=== PATIENT | female | born 1980 ===

== ENCOUNTER 2016-12-19 08:33 | Outpatient (CLI) | payer BC ==
--- NOTE | 2016-12-19 13:35 | Mammography Report ---
BILATERAL DIGITAL SCREENING MAMMOGRAM with CAD: 12/19/16 08:33:00 CLINICAL: Baseline screening. FINDINGS: The breasts are almost entirely fatty. No mass, architectural distortion or suspicious calcifications. IMPRESSION: No mammographic evidence of malignancy. BI-RADS CATEGORY: 1 - - Negative RECOMMENDATION: Routine mammographic screening based on ACS guidelines. COMMENT: Patient follow-up letters are generated by our [employer] application.
== END 2016-12-19 08:34 | disposition home or self-care (01) ==
LOC: SPVWC 08:33
PROVIDERS: ATTEND Family Medicine
DX: Z12.31 Encounter for screening mammogram for malignant neoplasm of breast (principal)
CPT/HCPCS: 77067; G0202